=== PATIENT | female | born 1955 | race Caucasian/White ===

== ENCOUNTER 2022-10-26 10:34 | Emergency (ER) | payer MEDICARE ==
[~2022-10-26] VITALS: Ht 167.6 cm; Wt 68.8 kg
[2022-10-26 11:16] LABS: BASOPHILS 0.8 % (0-2); EOSINOPHILS 2.5 % (0-6); HEMATOCRIT 40.7 % (35.0-50.0); HEMOGLOBIN 13.5 g/dL (12.0-18.0); LYMPHOCYTES 28.3 % (24-44); MCH 29.6 (27-36); MCHC 33.2 g/dl (30-36); MCV 89.1 fl (81-99); MONOCYTES 7.3 % (0-12); NEUTROPHILS 61.1 % (39-80); PLATELET COUNT 182 K/uL (140-440); RBC 4.56 M/ul (4.3-5.7); RDW 13.3 (10.5-15.0)
[2022-10-26 11:31] LABS: ALBUMIN 3.6 g/dL (3.4-5.0); ALBUMIN/GLOBULIN RATIO 1.03 (1.1-2.4); ANION GAP 9.1 (7-21); BILIRUBIN, TOTAL 0.4 ng/dL (0.2-1.0); BUN/CREATININE RATIO 33.7 (6.0-28.6); CREATININE, SERUM 0.89 mg/dL (0.55-1.02); POTASSIUM 4.1 mmol/L (3.5-5.1); PROTEIN, TOTAL 7.1 g/dL (6.4-8.2)
[2022-10-26 12:27] LABS: INR 3.49 (0.80-1.30); PROTIME 33.7 Sec (11.2-14.2)
[2022-10-26] MEDS ORDERED: JANTOVEN5 MG PO (12:39)
[2022-10-26] MEDS ORDERED: ATENOLOL25 MG PO (12:39)
[2022-10-26] MEDS ORDERED: LANSOPRAZOLE30 MG PO (12:40)
[2022-10-26 13:28] VITALS: BP 140/77
== END 2022-10-26 13:28 | disposition home or self-care (01) ==
LOC: ED 10:34
PROVIDERS: Emergency Medicine
DX: S70.12XA Contusion of left thigh, initial encounter (principal); X58.XXXA Exposure to other specified factors, initial encounter; Z79.01 Long term (current) use of anticoagulants; Z79.899 Other long term (current) drug therapy
CPT/HCPCS: 36415; 80053; 85025; 85610; 93971; 99284-25